=== PATIENT | female | born 1975 | race Caucasian/White ===

== ENCOUNTER 2018-10-07 15:30 | Emergency (ER) | payer BC ==
--- NOTE | 2018-10-07 15:47 | EDM.PDOC ---
ED HPI GENERAL MEDICAL PROBLEM - General Chief Complaint: ENT Problem Stated Complaint: Nose Bleeding Time Seen by Provider: 10/07/18 15:40 Source of Information: Reports: Patient History Limitations: Reports: No Limitations - History of Present Illness INITIAL COMMENTS - FREE TEXT/NARRATIVE: Patient comes to ER with complaint of on/off right sided nosebleed that first started yesterday. Has blood going down back of throat when bleed is present. No history of trauma/previous nosebleeds/URI/allergies. No other complaints/ changes. - Related Data Allergies Allergy/AdvReac Type Severity Reaction Status Date / Time No Known Allergies Allergy Verified 10/07/18 15:41 Home Meds: Home Meds Escitalopram [Lexapro] 15 mg PO DAILY 10/07/18 [History] Ibuprofen 600 mg PO Q6HR PRN 10/07/18 [History] Losartan [Cozaar] 50 mg PO DAILY 10/07/18 [History] buPROPion [Wellbutrin] 75 mg PO DAILY 10/07/18 [History] Past Medical History Cardiovascular History: Reports: Hypertension Psychiatric History: Reports: Anxiety Social & Family History - Tobacco Use Smoking Status *Q: Never Smoker - Caffeine Use Caffeine Use: Reports: None - Alcohol Use Alcohol Use History: No - Recreational Drug Use Recreational Drug Use: No Drug Use in Last 12 Months: No ED ROS ENT - Review of Systems Review Of Systems: ROS reveals no pertinent complaints other than HPI. ED EXAM, ENT - Physical Exam Exam: See Below Exam Limited By: No Limitations General Appearance: Alert, WD/WN, No Apparent Distress Eye Exam: Bilateral Eye: EOMI, PERRL Ears: Normal External Exam Nose: Active Bleeding (right nare), Other (unable to identify an active area of bleeding when examining nasal musosa) Mouth/Throat: Normal Gums, Normal Lips, Bleeding (down back of throat noted) Head: Atraumatic, Normocephalic Neck: Supple, Non-Tender Respiratory/Chest: No Respiratory Distress, Lungs Clear, Normal Breath Sounds, No Accessory Muscle Use Cardiovascular: Regular Rate, Rhythm, No Murmur GI/Abdominal: Soft, Non-Tender (Female) Exam: Deferred Rectal (Female) Exam: Deferred Back: No: Muscle Spasm Extremities: Normal Capillary Refill Neurological: Alert, Oriented, Normal Cognition, Normal Gait Psychiatric: Normal Affect, Normal Mood Skin: Warm, Dry, Normal Color ED ENT PROCEDURES - Epistaxis Procedure Indication: Epistaxis, Uncontrolled Recent anticoagulants/antiplatlets: No Uncontrolled HTN: No Recent septal/nasal surgery: No Site of bleeding: Right Nare Clearing of clots: Patient Blew Nose Ice pack to area: Yes Anterior Packing: Inflatable Nasal Tampon Posterior packing: Long Inflatable Nasal Tampon Complications: No Course - Vital Signs Last Recorded V/S: Last Vital Signs Temp 36.7 C 10/07/18 15:34 Pulse 89 10/07/18 15:34 Resp 14 10/07/18 15:34 BP 137/89 10/07/18 15:34 Pulse Ox 98 10/07/18 15:34 - Orders/Labs/Meds Orders: Active Orders 24 hr Category Date Time Status Saline Lock Insert [OM.PC] Routine Oth 10/07/18 16:03 Ordered Labs: Laboratory Tests 10/07/18 10/07/18 Range/Units 15:52 15:52 WBC 7.7 (4.0-10.2) K/uL RBC 4.22 (3.77-5.09) M/uL Hgb 13.4 (11.7-15.5) g/dL Hct 39.5 (34.0-46.0) % MCV 93.6 (84.0-98.0) fL MCH 31.8 (28.2-33.3) pg MCHC 33.9 (31.7-36.0) g/dL RDW 12.9 (11.2-14.1) % Plt Count 246 (150-350) K/uL Neut % (Auto) 63.4 (45.0-80.0) % Lymph % (Auto) 27.1 (10.0-50.0) % [place] % (Auto) 7.3 (2.0-14.0) % Eos % (Auto) 1.7 (0.0-5.0) % Baso % (Auto) 0.5 (0.0-2.0) % Neut # (Auto) 4.87 (1.40-7.00) K/uL Lymph # (Auto) 2.08 (0.50-3.50) K/uL [place] # (Auto) 0.56 (0.00-1.00) K/uL Eos # (Auto) 0.13 (0.00-0.50) K/uL Baso # (Auto) 0.04 (0.00-0.20) K/uL Sodium 140 (136-145) mmol/L Potassium 4.2 (3.5-5.1) mmol/L Chloride 105 (98-107) mmol/L Carbon Dioxide 25.3 (21.0-32.0) mmol/L BUN 24 H (7-18) mg/dL Creatinine 1.04 (0.51-1.17) mg/dL Est Cr Clr Drug Dosing 2.72 mL/min Estimated GFR (MDRD) 57 mL/min Glucose 95 (74-106) mg/dL Calcium 8.8 (8.5-10.1) mg/dL Total Bilirubin 0.4 (0.2-1.0) mg/dL AST 22 (15-37) U/L ALT 34 (12-78) U/L Alkaline Phosphatase 58 (46-116) IU/L Total Protein 7.4 (6.4-8.2) g/dL Albumin 3.6 (3.4-5.0) g/dL Meds: Medications Discontinued Medications Generic Name Dose Route Start Last Admin Trade Name Freq PRN Reason Stop Dose Admin Lorazepam 1 mg 10/07/18 16:00 Ativan PO 10/07/18 16:01 ONETIME ONE Lorazepam 1 mg 10/07/18 16:04 10/07/18 16:15 Ativan IVPUSH 10/07/18 16:05 1 mg ONETIME ONE Administration Morphine Sulfate 2 mg 10/07/18 16:04 10/07/18 16:17 Morphine IVPUSH 10/07/18 16:05 2 mg ONETIME ONE Administration Ondansetron HCl 4 mg 10/07/18 16:02 Zofran Odt PO 10/07/18 16:03 ONETIME ONE Ondansetron HCl 4 mg 10/07/18 16:04 10/07/18 16:11 Zofran IVPUSH 10/07/18 16:05 4 mg ONETIME ONE Administration Sodium Chloride 10 ml 10/07/18 16:03 10/07/18 16:11 Saline Flush FLUSH 10 ml ASDIRECTED PRN Administration Keep Vein Open - Re-Assessments/Exams Free Text/Narrative Re-Assessment/Exam: Baseline CBC/Chem performed. Inflatable nasal tampon inserted, inflated. Small amount of bleeding noted from right nare, additional 1cc of air placed into tampon. Patient had emesis of approx 250ml coffee ground blood shortly thereafter. Zofran, MS, and Ativan given to help with patient's nausea, anxiety, and discomfort from the tampon. Observed for over an hour. Bleeding from nare and down back of throat appeared well controlled. No further emesis of blood noted. Patient wished to go home. Extensive precautions reviewed prior to discharge. To return to the ER if rebleeding noted. Otherwise should plan on having balloon removed Wednesday. ER stock of Valium given (to cut in half into 5mg dose) for BID use, in addition to 10 tabs of T#3 to be used 1 every 6 hours. Departure - Departure Time of Disposition: 17:30 Disposition: Home, Self-Care 01 Condition: Good Clinical Impression: Epistaxis - Discharge Information *PRESCRIPTION DRUG MONITORING PROGRAM REVIEWED*: Not Applicable *COPY OF PRESCRIPTION DRUG MONITORING REPORT IN PATIENT MARY: Not Applicable Instructions: Nosebleed, [id number] Referrals: Erin Mcgowan PA [Primary Care Provider] - Forms: ED Department Discharge Additional Instructions: Do your best to put up with the discomfort from the nasal packing. It needs to stay in between 48 and 72 hours. It may be removed Wednesday by your clinic or the hospital clinic. If you are really having issues with it there may be a chance that the on-call MD here on Wednesday might be willing to remove it Wednesday at 4PM (the 48 hour vasu) Please return to the ER if you have any bleeding noted from the left side of the nose, or have noticeable bleeding down the back of your throat. You may need additional packing or referral to ENT in [place]. If bleeding is noted after the packing is removed, further plans will be made at that time. OK to take 1/2 a tablet of Valium every 12 hours. OK to take 1 Tylenol with Codeine every 6 hours to help with discomfort (take one regular Tylenol with each T#3 so that you have a full dose of regular Tylenol in your system). Do NOT take any more of the above meds more frequently as they are synergistic in causing respiratory depression which can be life-threatening. Do not drink alcohol while using these meds. - My Orders Last 24 Hours: My Active Orders 10/07/18 16:03 Saline Lock Insert [OM.PC] Routine - Assessment/Plan Last 24 Hours: My Active Orders 10/07/18 16:03 Saline Lock Insert [OM.PC] Routine
[2018-10-07] MEDS ORDERED: LORazepam 1 MG Tab PO ONE (16:00)
[2018-10-07] MEDS ORDERED: Ondansetron 4 MG Tab.DIS PO ONE (16:02)
[2018-10-07] MEDS ORDERED: Sodium Chloride 0.9% 10 ML Syringe FLUSH PRN (16:03)
[2018-10-07] MEDS ORDERED: Ondansetron 4 MG/2 ML SDV IVPUSH ONE (16:04)
[2018-10-07] MEDS ORDERED: LORazepam 2 MG/ML SDV IVPUSH ONE (16:04)
[2018-10-07] MEDS ORDERED: Morphine 2 MG/ML Syringe IVPUSH ONE (16:04)
== END 2018-10-07 17:50 | disposition home or self-care (01) ==
LOC: LL.ED 15:30
DX: R04.0 Epistaxis (principal); I10 Essential (primary) hypertension; F41.9 Anxiety disorder, unspecified; Z79.899 Other long term (current) drug therapy
CPT/HCPCS: 30903; 30905; 36415; 80053; 85025; 96374; 96375; 99283-25; J2060; J2270; J2405